=== PATIENT | male | born 1940 | race Caucasian/White ===

== ENCOUNTER → 2016-07-29 | Outpatient (CLI) | payer MEDICARE, OTHER ==
[~2016-07-29] MED LIST: ACTOS30 MG PO; ALLOPURINOL300 MG PO; AMIODARONE PO; ANTACID650 MG PO; ASPIRIN PO; AVANDIA PO; CALCIUM; CALCIUM ACETAT667 M2 PO; COREG12.5 MG PO; COUMADIN PO; CRESTOR PO; DEMEROL PO; FERROUS SULFATE PO; FLOMAX0.4 M1 PO; FUROSEMIDE40 MG PO; GARLIC; GLUCOSAMINE CHROND PO; GLUCOTROL PO; KCL PO; KIDS VITAMIN400 UNIT PO; L-LYSINE500 M1 PO; LANTUS SOLOSTAR3 ML SUBQ; LASIX PO; LASIX80 MG PO; LECITHIN; LIPITOR40 MG PO; LISINOPRIL PO; LOPRESSOR PO; LYSINE; METAMUCIL0.52 G PO; METFORMIN PO; MIRALAX17 GM PO; MULTI-VITAMIN1 TAB PO; NITROGYLCERIN SUBLINGUAL; NORVASC PO; NOVOLOG100 U/ML; OPTIFLEX-C400 MG PO; PAMELOR PO; PANTOPRAZOLE SO40 MG PO; PERCOCET 10/3251 TAB PO; PERCOCET10 PO; PREDNISONE PO; PRILOSEC PO; PROTONIX PO; ROCALTROL0.5 MC1 PO; SENNA PO; SODIUM BICARBO650 MG PO; STOOL SOFTENER1 EAC1 PO; STOOL SOFTENER100 M1 PO; ULTRAM PO; ZINC; [UNRECOGNIZED DRUG - MIXTURE]
--- NOTE | ~2016-07-29 | CT4 ---
[facility] A Service of [facility] RADIOLOGY TEXT RESULTS PATIENT: NAVI MERCEDES LOCATION: [facility] : 41 UNIT #: [id number] AGE: [address]: Vijay Harvey MD SEX: M ORDER DR: [id number] [address] [address] [id number] O MR#: [id number] Acc #: [id number] NAME: NAVI MERCEDES : 1940 SEX: M STUDY DATE/TIME: 07/29/2016 11:52 UNIT: [facility] ROOM: STUDY DESCRIPTION: CT Abd and Pelv Wo Cont Attending Physician: Vijay Harvey M.D. Referring Physician: Vijay Harvey M.D. Ordering Physician: Vijay Harvey M.D. Primary Care Physician: Jorge Alberto Verdugo D.O. MEDICAL IMAGING REPORT This report is preliminary unless electronic signature is present. EXAM CT abdomen and pelvis without contrast INDICATIONS Lymphoma restaging. Deficiency anemia. Thrombocytopenia. Observation for disease progression. TECHNIQUE Unenhanced CT abdomen and pelvis 04/01/2016. This CT exam was performed with one or more of the following radiation dose reduction techniques: automatic exposure control, adjustment of mA and/or kV according to patient size, and iterative reconstruction. FINDINGS Refer to separately dictated chest CT for thoracic findings. The liver, spleen, kidneys, adrenal glands are unremarkable. Previous cholecystectomy. Bowel loops are non-dilated. The appendix is normal. Infiltrative process in the region of the pancreatic head and uncinate process measures 3.8 x 3.9 cm, previously 5.6 x 4.4 cm. Adenopathy extending into the central mesentery measures 1.8 cm, previously 2.3 cm. No new abdominal adenopathy. PELVIS WITHOUT CONTRAST: No pelvic adenopathy. No aggressive appearing bone lesion. IMPRESSION Positive interval response to therapy. Infiltrative mass in the region of the pancreatic head and uncinate process as well as adenopathy extending into the central mesentery are persistent but decreased in size. There is no new or enlarging abdominal or pelvic adenopathy. STS. [facility] A Service of [facility] RADIOLOGY TEXT RESULTS PATIENT: NAVI MERCEDES LOCATION: [facility] : 41 UNIT #: [id number] AGE: [address]: Vijay Harvey MD SEX: M ORDER DR: Dictated by... Mike Soni M.D. THIS IS AN ELECTRONICALLY VERIFIED REPORT Mike Soni M.D. at 07/30/2016 7:19 AM EED/pcl TD: 07/29/2016 21:52 JOB #: [id number] MEDICAL IMAGING REPORT Page 1 of 1
--- NOTE | ~2016-07-29 | CT57 ---
[facility] A Service [facility] RADIOLOGY TEXT RESULTS PATIENT: NAVI MERCEDES LOCATION: [facility] : 41 UNIT #: [id number] AGE: [address]: Vijay Harvey MD SEX: M ORDER DR: [id number] [place] [address] [id number] O MR#: [id number] Acc #: [id number] NAME: NAVI MERCEDES : 1940 SEX: M STUDY DATE/TIME: 07/29/2016 11:52 UNIT: [facility] ROOM: STUDY DESCRIPTION: CT Chest Wo Cont Attending Physician: Vijay Harvey M.D. Referring Physician: Vijay Harvey M.D. Ordering Physician: Vijay Harvey M.D. Primary Care Physician: Jorge Alberto Verdugo D.O. MEDICAL IMAGING REPORT This report is preliminary unless electronic signature is present. EXAM CT chest without contrast INDICATIONS Iron deficiency anemia. Thrombocytopenia. Malignant neoplasm of the abdomen. Lymphoma restaging. PROCEDURE Unenhanced CT of the chest COMPARISON 04/01/16. TECHNIQUE This CT exam was performed with one or more of the following radiation dose reduction techniques: automatic exposure control, adjustment of mA and/or kV according to patient size, and iterative reconstruction. FINDINGS A 2.0 x 1.2 cm nodule posterior left upper lobe is stable. A 9 mm nodule left lower lobe is unchanged. No new nodules. No pleural fluid or pneumothorax. Previous CABG. Extensive coronary artery calcification. No adenopathy in the chest. No aggressive appearing bone lesion. IMPRESSION 1. No acute findings. 2. Two nodules in the left lung are stable. No adenopathy in the chest. [facility] Service [facility] RADIOLOGY TEXT RESULTS PATIENT: NAVI MERCEDES LOCATION: [facility] : 41 UNIT #: [id number] AGE: [address]: Vijay Harvey MD SEX: M ORDER DR: Dictated by... Mike Soni M.D. THIS IS AN ELECTRONICALLY VERIFIED REPORT Mike Soni M.D. at 07/30/2016 7:19 AM BARBIE/fab TD: 07/29/2016 21:47 JOB #: [id number] MEDICAL IMAGING REPORT Page 1 of 1
== END | disposition home or self-care (01) ==
LOC: SCT 11:00
DX: C49.4 Malignant neoplasm of connective and soft tissue of abdomen (principal); D50.9 Iron deficiency anemia, unspecified; D69.6 Thrombocytopenia, unspecified; D63.1 Anemia in chronic kidney disease; R91.8 Other nonspecific abnormal finding of lung field; K86.89 Other specified diseases of pancreas; R59.9 Enlarged lymph nodes, unspecified
CPT/HCPCS: 71250; 74176

== ENCOUNTER → 2016-10-10 | Outpatient (CLI) | payer MEDICARE, OTHER ==
--- NOTE | ~2016-10-10 | CT98 ---
[facility] A Service of [facility] RADIOLOGY TEXT RESULTS PATIENT: NAVI MERCEDES LOCATION: [facility] : 41 UNIT #: [id number] AGE: [address]: Adam Bo MD SEX: M ORDER DR: [id number] [place] [id number] O MR#: [id number] Acc #: [id number] NAME: NAVI MERCEDES : 1940 SEX: M STUDY DATE/TIME: 10/10/2016 8:51 UNIT: [facility] ROOM: STUDY DESCRIPTION: CT Lumbar Spine Wo Cont Attending Physician: Adam Bo M.D. Referring Physician: Adam Bo M.D. Ordering Physician: Adam Bo M.D. Primary Care Physician: Jorge Alberto Verdugo D.O. MEDICAL IMAGING REPORT This report is preliminary unless electronic signature is present. EXAM CT of the lumbar spine without contrast dated 10/10/2016. COMPARISON Plain films lumbar spine dated 09/30/2016. HISTORY Low back pain, chronic. History of multiple back surgeries. Patient also has history of cancer. TECHNIQUE This CT exam was performed with one or more of the following radiation dose reduction techniques: automatic exposure control, adjustment of mA and/or kV according to patient size, and iterative reconstruction. FINDINGS CT of the lumbar spine was obtained without contrast in the axial plane followed by sagittal and coronal reformats. Postoperative changes are noted throughout the lumbar spine. There are left pedicular screws from L1-L3 and at L5. Right pedicular screws are noted at L1-L3 and L5. There are screw tracks noted in bilateral L4 pedicles and bilateral S1 sacral iliac ala. No significant evidence of hardware loosening. Stabilization rods are noted along with intervertebral disc prosthesis at L1-2, L2-3, L3-4 and probably L5- S1. There are calcifications noted at L4-5 disc but it is unclear if patient has had a prior surgery at this level related to the disc. Correlate with history. There is minimal leftward curvature of the lumbar spine with apex at L2. Prominent left lateral endplate osteophytes are noted at L1-2 and L3-4 levels. Disc curvature could be related to positioning or mild levoscoliosis. Surgical tirso are noted around the vessels distal to the aortic bifurcation, in the anterior midline prevertebral region. It is chronic-appearing without any associated acute abnormality. [facility] A Service of [facility] RADIOLOGY TEXT RESULTS PATIENT: NAVI MERCEDES LOCATION: [facility] : 41 UNIT #: [id number] AGE: [address]: Adam Bo MD SEX: M ORDER DR: Significant atherosclerotic arterial vascular calcifications are noted in the aorta extending to the origins of multiple vessels including bilateral renal arteries, relatively worse on the left. There is probably moderate left and mild to moderate right renal artery origin stenosis extending to the proximal portion. Streak artifact from hardware limits evaluation of adjacent structures. T12-L1: No significant abnormality. L1-2, L2-3: Postoperative changes are noted with soft tissue in the region of the neural foramina particularly in the left L1-2, bilateral L2-3. There is postoperative soft tissue noted around the thecal sac limiting the evaluation also. L3-4: Postoperative changes with patent neural foramina. Evaluation of thecal sac is limited without any obvious significant abnormality. L5-S1: Mild disc osteophyte complex without any significant canal stenosis or neural foraminal narrowing. Bilateral facet changes are seen. There is inflammatory soft tissue noted posterior to the spine in the mid to lower lumbar levels without any discernible drainable fluid collection. IMPRESSION 1. Postoperative changes are noted at multiple levels of the lumbar spine extending from the lower thoracic spine. 2. There is absence of pedicular screws bilaterally at L4 with presence of screw tracks. 3. The hardware present does not demonstrate any significant loosening. 4. Intervertebral disc prosthesis is seen at multiple levels without complete bony fusion. 5. No drainable postoperative large fluid collections. Dictated by... Ruby Elliott M.D. THIS IS AN ELECTRONICALLY VERIFIED REPORT Ruby Elliott M.D. at 10/15/2016 2:50 PM TODD/richard TD: 10/10/2016 14:58 JOB #: [id number] MEDICAL IMAGING REPORT Page 1 of 1
== END | disposition home or self-care (01) ==
LOC: SCT 08:44
DX: M54.5 Low back pain (principal); M25.78 Osteophyte, vertebrae; Z98.890 Other specified postprocedural states
CPT/HCPCS: 72131

== ENCOUNTER → 2016-11-05 | Outpatient (CLI) | payer MEDICARE, OTHER ==
--- NOTE | ~2016-11-05 | CT57 ---
[facility] A Service of [facility] RADIOLOGY TEXT RESULTS PATIENT: NAVI MERCEDES LOCATION: [facility] : 41 UNIT #: [id number] AGE: [address]: Vijay Harvey MD SEX: M ORDER DR: [id number] [place] [id number] O MR#: [id number] Acc #: [id number] NAME: NAVI MERCEDES : 1940 SEX: M STUDY DATE/TIME: 11/05/2016 13:30 UNIT: [facility] ROOM: STUDY DESCRIPTION: CT Chest Wo Cont Attending Physician: Vijay Harvey M.D. Referring Physician: Vijay Harvey M.D. Ordering Physician: Vijay Harvey M.D. Primary Care Physician: Jorge Alberto Verdugo D.O. MEDICAL IMAGING REPORT This report is preliminary unless electronic signature is present. EXAM CT of the chest without contrast. INDICATIONS Followup malignant neoplasm of soft tissue of abdomen, observation for metastatic disease. TECHNIQUE CT of the chest was performed without contrast. Coronal and sagittal reformatted images were obtained. This CT exam was performed with one or more of the following radiation dose reduction techniques: automatic exposure control, adjustment of mA and/or kV according to patient size, and iterative reconstruction. COMPARISON Comparison with 07/29/2016. FINDINGS Stable 2.0 x 1.2 cm nodule within the posterior left upper lobe. Stable 9-10 mL nodule in the superior segment of the left lower lobe. No new nodules. No pleural effusion or suspicious lymphadenopathy. Please refer to separately dictated CT of the abdomen and pelvis for findings below the diaphragm. Bone windows show degenerative changes of the thoracic spine. IMPRESSION Stable left lung pulmonary nodules. Dictated by... Magno Corley M.D. THIS IS AN ELECTRONICALLY VERIFIED REPORT [facility] A Service of [facility] RADIOLOGY TEXT RESULTS PATIENT: NAVI MERCEDES LOCATION: [facility] : 41 UNIT #: [id number] AGE: [address]: Vijay Harvey MD SEX: M ORDER DR: Magno Corley M.D. at 11/07/2016 4:00 PM RAMIRO/peg TD: 11/06/2016 16:09 JOB #: [id number] MEDICAL IMAGING REPORT Page 1 of 1
--- NOTE | ~2016-11-05 | CT4 ---
[facility] A Service of [facility] RADIOLOGY TEXT RESULTS PATIENT: NAVI MERCEDES LOCATION: [facility] : 41 UNIT #: [id number] AGE: [address]: Vijay Harvey MD SEX: M ORDER DR: [id number] [address] [address] [id number] O MR#: [id number] Acc #: [id number] NAME: NAVI MERCEDES : 1940 SEX: M STUDY DATE/TIME: 11/05/2016 12:20 UNIT: [facility] ROOM: STUDY DESCRIPTION: CT Abd and Pelv Wo Cont Attending Physician: Vijay Harvey M.D. Referring Physician: Vijay Harvey M.D. Ordering Physician: Vijay Harvey M.D. Primary Care Physician: Jorge Alberto Verdugo D.O. MEDICAL IMAGING REPORT This report is preliminary unless electronic signature is present. EXAM CT of the abdomen and pelvis without contrast. INDICATIONS Malignant neoplasm, soft tissue of the abdomen, thrombocytopenia. TECHNIQUE CT of the abdomen and pelvis was performed following the administration of oral contrast only. Coronal and sagittal reformatted images were obtained. This CT exam was performed with one or more of the following radiation dose reduction techniques: automatic exposure control, adjustment of mA and/or kV according to patient size, and iterative reconstruction. COMPARISON Comparison is made with 07/29/2016. FINDINGS Please refer to separately dictated CT of the chest for findings above the diaphragm. Evaluation of the solid organs and viscera of the abdomen and pelvis is limited due to the lack of IV contrast. The liver is unremarkable. Cholecystectomy. The spleen is unremarkable. The kidneys are unremarkable. The adrenal glands are unremarkable. Redemonstrated is an infiltrative mass in the region of the head of the pancreas. This appears to have further slightly decreased in size now measuring roughly 3.6 x 3.8 cm. Previously this measured 3.8 x 3.9 cm. Also slight interval decrease in size of mesenteric lymph node on image 53 now measuring 1.7 cm, previously about 1.8 cm. There is no evidence for ascites. PELVIS: The colon is unremarkable. Stable tortuosity and dilatation of the infrarenal abdominal aorta and the iliac arteries. Fat-containing STS. [facility] A Service of [facility] & [facility] RADIOLOGY TEXT RESULTS PATIENT: NAVI MERCEDES LOCATION: [facility] : 41 UNIT #: [id number] AGE: [address]: Vijay Harvey MD SEX: M ORDER DR: inguinal hernia on the right. No free fluid. Bone windows demonstrate extensive postoperative changes of the lumbar spine. IMPRESSION Slight interval decrease in size of infiltrative appearing mass in the region of the head of the pancreas and slight interval decrease in size of mesenteric lymph node. Dictated by... Magno Corley M.D. THIS IS AN ELECTRONICALLY VERIFIED REPORT Magno Corley M.D. at 11/07/2016 4:00 PM RAMIRO/peg TD: 11/06/2016 15:49 JOB #: [id number] MEDICAL IMAGING REPORT Page 1 of 1
== END | disposition home or self-care (01) ==
LOC: SCT 12:11
DX: C49.4 Malignant neoplasm of connective and soft tissue of abdomen (principal); D50.9 Iron deficiency anemia, unspecified; D69.6 Thrombocytopenia, unspecified; N18.9 Chronic kidney disease, unspecified; D63.1 Anemia in chronic kidney disease
CPT/HCPCS: 71250; 74176